=== PATIENT | male | born 1965 | race Two or more races ===

== ENCOUNTER 2021-09-02 09:45 | Emergency (ER) | payer MEDICARE ==
[~2021-09-02] VITALS: Ht 172.7 cm; Wt 84.0 kg
--- NOTE | 2021-09-02 10:17 | PHYS DOC ---
Past Medical History Past Medical History: Bipolar, Diabetes-Type II, High Cholesterol, Hypothyroid Additional Past Medical Histor: chronic back pain, BPH Past Surgical History: Other Smoking Status: Never Smoker Alcohol Use: None Drug Use: None General Adult EDM: Chief Complaint: CONSTIPATION HPI: HPI: Patient is a 56-year-old male that presented today via [facility] from his [facility] at an [place]. Patient is here today for abdominal pain and constipation, patient states he has not had a bowel movement in a little over 2 weeks, he states that he is on chronic opioid medication due to chronic back pain and he has not had a stool in over 2 weeks. We did call the nursing facility today and they stated that the patient is a self reporting bowel movement and he told the nursing staff that he has not had a bowel movement in over 2 weeks yesterday, patient does refuse MiraLAX on a daily basis but does take Dulcolax and senna on a daily basis for a bowel regimen with opioid medication. They did try to call the the primary care physician yesterday and were unable to get a hold of him today patient was having increased pain and so it was decided to call 911 to have him taken to the emergency department for further evaluation. Review of Systems: Review of Systems: Constitutional: Denies fever or chills. [] Eyes: Denies change in visual acuity. [] HENT: Denies nasal congestion or sore throat. [] Respiratory: Denies cough or shortness of breath. [] Cardiovascular: Denies chest pain or edema. [] GI: Abdominal pain, constipation : Denies dysuria. [] Musculoskeletal: Denies back pain or joint pain. [] Integument: Denies rash. [] Neurologic: Denies headache, focal weakness or sensory changes. [] Endocrine: Denies polyuria or polydipsia. [] Lymphatic: Denies swollen glands. [] Psychiatric: Denies depression or anxiety. [] Heart Score: C/O Chest Pain: N/A Risk Factors: Risk Factors: DM, Current or recent (<one month) smoker, HTN, HLP, family history of CAD, obesity. Risk Scores: Score 0 - 3: 2.5% MACE over next 6 weeks - Discharge Home Score 4 - 6: 20.3% MACE over next 6 weeks - Admit for Clinical Observation Score 7 - 10: 72.7% MACE over next 6 weeks - Early Invasive Strategies Current Medications: Flomax 0.4 mg in the evening. Levemir 12 units once daily in the a.m. Levemir 6 units in the evening NovoLog FlexPen sliding scale insulin Acetaminophen as needed DOCUSATE 100 mg 1 tablet daily Hydralazine 25 mg at night as needed for itching OXYBUTYNIN 5MG NEEDED Percocet 10/325 as needed every 4 hours for pain bISACODYL 10MG NEEDED CONSTIPATION LACTULOSE 10GM/15ML NEEDED Milk of magnesia as needed for constipation Atorvastatin 20 mg at night dIVALPROEX 500MG ER IN PM Levothyroxine 25 mcg daily oLANZAPINE 10MG ONE TABLET DAILY MiraLAX 17 g daily Senna 8.6 mg 1 tablet daily for constipation Allergies: Allergies: Allergies Coded Allergies Type Severity Reaction Last Updated Verified No Known Drug Allergies 09/02/21 No Physical Exam: PE: Constitutional: Well developed, well nourished, no acute distress, non-toxic appearance. [] HENT: Normocephalic, atraumatic, bilateral external ears normal, oropharynx moist, no oral exudates, nose normal. [] Eyes: PERRLA, EOMI, conjunctiva normal, no discharge. [] Neck: Normal range of motion, no tenderness, supple, no stridor. [] Cardiovascular:Heart rate regular rhythm, no murmur [] Lungs & Thorax: Bilateral breath sounds clear to auscultation [] Abdomen: Abdomen is distended and firm, generalized pain noted with palpation hypoactive bowel sounds are noted no pulsatile masses noted. Skin: Warm, dry, no erythema, no rash. [] Back: No tenderness, no CVA tenderness. [] Extremities: No tenderness, no cyanosis, no clubbing, ROM intact, no edema. [] Neurologic: Alert and oriented X 3, normal motor function, normal sensory function, no focal deficits noted. [] Psychologic: Affect normal, judgement normal, mood normal. [] Current Patient Data: Vital Signs: Vital Signs Date Time Temp Pulse Resp B/P (MAP) Pulse Ox O2 Delivery O2 Flow Rate FiO2 09/02/21 09:50 98.1 91 15 142/105 (117) 95 Room Air 98.1 EKG: EKG: [] Radiology/Procedures: Radiology/Procedures: REASON: constipation PROCEDURE: KUB XR ABDOMEN 1V History: Reason: constipation / Spl. Instructions: / History: Technique: Supine view the abdomen. Comparison: None. Findings: Mild small bowel gas. Air and stool throughout the colon. Moderate colonic stool burden. Lower lumbar spondylosis. Curvilinear density overlying the lumbar spine potentially external to the patient. Impression: 1. Nonobstructed bowel gas pattern. 2. Moderate distal colonic stool burden. 3. Curvilinear density overlying the lower lumbar spine, potentially external to the patient. Recommend clinical correlation. Electronically signed by: Percy Akhtar DO (09/02/2021 10:25 AM) [id number][] Course & Med Decision Making: Course & Med Decision Making Pertinent Labs and Imaging studies reviewed. (See chart for details) 1321 patient was given a soapsuds enema by the emergency department staff he then had a bowel movement fairly large states his stomach feels much better and he feels much better he is ready to go back to his facility. Did call his fa cility the [facility] and informed him of his status. Will Disclaimer: Will Disclaimer: This electronic medical record was generated, in whole or in part, using a voice recognition dictation system. Departure Departure Impression: Primary Impression: Constipation due to pain medication Disposition: 01 HOME / SELF CARE / HOMELESS Condition: STABLE Patient Instructions: Constipation, Adult Additional Instructions: Continue current home medications as prescribed Follow-up with Dr. Bender who is your primary care physician at the [facility] for further bowel regimen management. EVON DUKE APRN Sep 02, 2021 10:17
--- NOTE | 2021-09-02 10:28 | RAD ---
XR ABDOMEN 1V History: Reason: constipation / Spl. Instructions: / History: Technique: Supine view the abdomen. Comparison: None. Findings: Mild small bowel gas. Air and stool throughout the colon. Moderate colonic stool burden. Lower lumbar spondylosis. Curvilinear density overlying the lumbar spine potentially external to the patient. Impression: 1. Nonobstructed bowel gas pattern. 2. Moderate distal colonic stool burden. 3. Curvilinear density overlying the lower lumbar spine, potentially external to the patient. Recomm end clinical correlation. Electronically signed by: Percy Akhtra DO (09/02/2021 10:25 AM) [id number]
[2021-09-02 13:17] VITALS: BP 127/69
== END 2021-09-02 15:02 | disposition home or self-care (01) ==
LOC: ER 09:45
DX: K59.03 Drug induced constipation (principal); F31.9 Bipolar disorder, unspecified; E11.9 Type 2 diabetes mellitus without complications; E78.00 Pure hypercholesterolemia, unspecified; E03.9 Hypothyroidism, unspecified; G89.29 Other chronic pain; N40.0 Benign prostatic hyperplasia without lower urinary tract symptoms
CPT/HCPCS: 74018; 99284